=== PATIENT | male | born 1975 | race Caucasian/White ===

== ENCOUNTER 2018-10-22 11:09 | Emergency (ER) | payer OTHER ==
[~2018-10-22] VITALS: Ht 180.3 cm; Wt 95.3 kg
[2018-10-22] MEDS ORDERED: FLEXERIL PO (11:19)
[2018-10-22] MEDS ORDERED: PROPRANOLOL 1010 MG PO (11:19)
[2018-10-22 11:40] VITALS: BP 178/121
== END 2018-10-22 11:40 | disposition home or self-care (01) ==
LOC: M.ERS 11:09
DX: M54.41 Lumbago with sciatica, right side (principal); I10 Essential (primary) hypertension; F17.200 Nicotine dependence, unspecified, uncomplicated